=== PATIENT | female | born 1975 | race Caucasian/White ===

== ENCOUNTER 2016-09-15 17:42 | Emergency (ER) | payer MEDICAID ==
[2016-09-15 17:46] VITALS: BP 138/79; PULSE 82; RESP 14; TEMP 98.6; O2SAT 93
[2016-09-15] MEDS ORDERED: TDAP ADULT 0.5 ML INJ (BOOSTRIX) IM ONE (18:24)
--- NOTE | 2016-09-15 18:25 | EDPHY ---
H & P HPI/ROS: Chief complaint: Left ring finger cut History of present illness: This is a 41-year-old female who presents to the emergency department for left ring finger cot. Just prior to arrival she cut the tip of her finger with a knife. There has been some pain and bleeding, controlled with application of a dressing. She denies paresthesias or abnormal coolness the finger. She is moving it without difficulty. She is not sure of when she received her last tetanus shot. Smoking Status: Former smoker Physical Exam: General: Alert, nontoxic Skin: Very small skin defect to the distal tip of the left ring finger, no foreign bodies, no repairable lesions Musculoskeletal: Patient is flexing and extending her left ring finger in the DIPJ, PIP and MCP joint Vascular: Capillary refill brisk in the left ring finger, radial pulses 2+ Neurologic: Sensation intact in the left ring finger using light touch and two- point discrimination Constitutional: Initial Vital Signs Temperature (C) 37.0 C 09/15/16 17:43 Heart Rate 82 09/15/16 17:43 Respiratory Rate 14 09/15/16 17:43 Blood Pressure 138/79 H 09/15/16 17:43 O2 Sat (%) 93 09/15/16 17:43 O2 Delivery Mode Room Air Allergies/Adverse Reactions: gluten Allergy (Verified 08/11/15 12:40) morphine Allergy (Verified 08/05/11 14:55) Wheat Containing *RETIRED-02/12/12 Allergy (Verified 08/05/11 14:55) Home Medications: Medication Instructions Recorded Diphenoxylate HCl/Atrop Sulf 1 tab PO Q4-6PRN PRN #14 tab 08/11/15 [Lomotil] Flonase Allergy Relief 08/11/15 Metformin 1000 mg 08/11/15 Tirosint 88 mcg 08/11/15 MDM/Departure - MDM Medications Given: Discontinued Medications Diphtheria/Tetanus/Acell Pertussis (Boostrix) 0.5 ml IM .ONCE ONE Stop: 09/15/16 18:25 Last Admin: 09/15/16 18:33 Dose: 0.5 ml ED Course/Re-evaluation: Patient seen under the supervision of my secondary supervising physician Dr. Tj Nicole. Patient presents to the emergency department for a cut to her left ring finger. The finger is neurovascularly intact. She has good musculoskeletal control of the finger. There are no repairable lesions. The wound is cleaned and dressed. Her tetanus is updated. She is discharged home. She is asked to follow up with her primary care doctor or a hand doctor for recheck. Return precautions are given. Patient voiced understanding and agreement with plan. - Depart Disposition: Home, Routine, Self-Care Clinical Impression: Abrasion Condition: Good Instructions: Abrasion (ED), Acute Wounds (ED) Additional Instructions: Follow-up with a primary care doctor or a hand doctor for continued evaluation and care If symptoms worsen or new symptoms develop return to the emergency room for recheck Referrals: Tram Rivas PA [Primary Care Provider] - As per Instructions Ramona Patel MD [Medical Doctor] - As per Instructions
== END 2016-09-15 18:38 | disposition home or self-care (01) ==
DX: S60.415A Abrasion of left ring finger, initial encounter (principal); Z23 Encounter for immunization; Z87.891 Personal history of nicotine dependence; W26.0XXA Contact with knife, initial encounter

== ENCOUNTER → 2016-12-23 | Outpatient (CLI) | payer MEDICAID ==
[~2016-12-23] MED LIST: GADOBUTROL 10 ML VIAL IVP ONE
== END ==
LOC: FIMAGING 08:22
PROVIDERS: ATTEND Otolaryngology
DX: H90.41 Sensorineural hearing loss, unilateral, right ear, with unrestricted hearing on the contralateral side (principal); M50.322 Other cervical disc degeneration at C5-C6 level
CPT/HCPCS: A9585